=== PATIENT | male | born 1950 | race Caucasian/White ===

== ENCOUNTER → 2018-05-02 17:57 | Outpatient (CLI) | payer BC, SELFPAY ==
[2018-05-02 18:35] LABS: Absolute Lymphocyte Count 1.99 X10^3/ul (0.83-4.51); Absolute Neutrophil Count 4.2 X10^3/uL (2.0-7.7); Basophil# 0.02 X10^3/uL; Basophil% 0.3 % (0-1); Eosinophil# 0.15 X10^3/uL; Eosinophils% 2.1 % (0-5); Hemoglobin 15.5 g/dl (13.0-16.5); Lymphocyte # 1.99 X10^3/ul (4.0); Lymphocyte % 27.3 % (19-41); Mean Corp Hgb Conc 33.7 g/gl (32-36); Mean Corpuscular Hgb 29.3 pg (27.0-32.0); Mean Platelet Vol. 12.2 fl (6.2-12.0); Monocyte% 12.4 % (0-10); Neutrophil % 57.6 % (47-70); Platelet Count 185 K/mm3 (150-450); RBC Distribution Width CV 13.8 % (11.6-14.6); RBC Distribution Width SD 44.3 fl (35.1-43.9); Red Blood Count 5.29 M/mm3 (4.6-6.2); White Blood Count 7.3 K/mm3 (4.4-11.0)
[2018-05-02 18:55] LABS: POSITIVE COUNT NO; POSITIVE DIFFERENTIAL NO; POSITIVE MORPHOLOGY NO
[2018-05-02 19:32] LABS: AST(SGOT) 33 U/L (15-37); Alanine Aminotransfer ALT/SGPT 55 U/L (16-61); Alkaline Phosphatase 59 U/L (45-117); Anion Gap 8 (5-15); BUN 15 mg/dL (7-18); BUN/Creat Ratio 14.2 RATIO (10-20); Calcium,Total 9.8 mg/dL (8.5-10.1); Chloride 105 mmol/L (98-107); Creatinine, Serum 1.06 mg/dL (0.70-1.30); EST Glomerular Filtration Rate 74 mL/min (>60); Est Glom Filt Rate - Afr Amer 90 mL/min (>60); Glucose 86 mg/dL (74-106); PSA,Total - Annual Screen 0.83 ng/mL (0.00-4.00); Potassium 3.9 mmol/L (3.5-5.1); Sodium Level 139 mmol/L (136-145)
[2018-05-02 20:13] LABS: Vitamin D,25 Hydroxy 27.3 ng/mL (29.95-100.01)
[2018-05-04 11:38] LABS: Hep C Antibodies 0.1 s/co ratio (0.0-0.9)
== END ==
PROVIDERS: Family Provider Family Medicine Geriatric Medicine; PCP Family Medicine Geriatric Medicine; Referring Provider Family Medicine Geriatric Medicine; Visit Provider Family Medicine Geriatric Medicine
DX: Z00.00 Encounter for general adult medical examination without abnormal findings (principal); Z13.89 Encounter for screening for other disorder; Z12.5 Encounter for screening for malignant neoplasm of prostate; E55.9 Vitamin D deficiency, unspecified
CPT/HCPCS: 36415; 80053; 82306; 84153; 84443; 85025; 86803; G0103

== ENCOUNTER → 2018-07-26 16:44 | Outpatient (CLI) | payer BC, SELFPAY ==
--- NOTE | 2018-07-26 16:48 | CT_ITS ---
STUDY: CT ABDOMEN WITH CONTRAST REASON FOR EXAM: Male, 68 years old. Unruptured abdominal aortic aneurysm. RADIATION DOSAGE (If Supplied By Facility): CTDIvol = ( 26.34 ) mGy, DLP = ( 1010.91 ) mGycm TECHNIQUE: Transaxial images were obtained post I.V. administration of Isovue 370 100 IV, and without oral contrast. Sagittal and coronal images were reconstructed. Individualized dose optimization techniques were used for this CT. COMPARISON: None. FINDINGS: Well-defined 1.5 cm pneumatocele and a 5.5 mm calcified granuloma are incidentally noted in the posterior basilar right lower lobe. The visualized portions of the heart are within normal limits. There is hepatomegaly with diffuse hepatic enlargement. The right lobe of the liver is approximately 22.5 cm in length. The portal vein diameter is 15 mm. Normal gallbladder and extrahepatic biliary system. There is mild splenomegaly, measuring 12.8 x 5.75 x 14.35 cm. Normal pancreas. Normal bilateral adrenal glands. 5-6 mm subcapsular low density at the lateral lower pole of the right kidney consistent with a cortical cyst. Normal left kidney. No hydronephrosis. Normal visualized stomach. Normal small intestine. There are a few sigmoid colonic diverticula consistent with diverticulosis. The appendix is visualized and appears normal. There is mild atherosclerotic calcification of the abdominal aorta and proximal iliac arteries, without a demonstrated aneurysm. Normal inferior vena cava. Normal retroperitoneum. Normal abdominal wall. There are multilevel degenerative changes of the visualized spine, including posterior L4-5 S1 osteophytes bounding a wide-based posterior disc bulge at that level and multilevel hypertrophic facet arthropathies. CT/Abdomen WITH IV Contrast IMPRESSION: 1. No abdominal aortic aneurysm. 2. Hepatomegaly with steatosis. There is also mild splenomegaly. 3. 5-6 mm cortical cyst at the lower pole of the right kidney. No hydronephrosis. 4. There are a few sigmoid colon diverticula without acute diverticular disease. The bowel is otherwise unremarkable without signs of obstruction. The appendix is normal. 5. Multilevel degenerative changes of the spine. Electronically Signed: Andrews Hall MD at 17:09 EST , Service support ,
[2018-07-26 17:05] LABS: CREATININE FINGERSTICK 1.1 mg/dL (0.70-1.30)
== END ==
PROVIDERS: Family Provider Family Medicine Geriatric Medicine; PCP Family Medicine Geriatric Medicine; Referring Provider Family Medicine Geriatric Medicine; Visit Provider Family Medicine Geriatric Medicine
DX: I71.4 Abdominal aortic aneurysm, without rupture (principal)
CPT/HCPCS: 74160; Q9967

== ENCOUNTER → 2018-08-06 14:55 | Outpatient (CLI) | payer BC, SELFPAY ==
--- NOTE | 2018-08-06 12:00 | COLBX_PTH ---
PATIENT: KOFFI ESQUIVEL Jr. LOC: [facility] U#:[id number] AGE/SX: 75/M ROOM: RE08/06/[address]: Dr. Tenzin Kruger MD : 1950 BED: DIS: SPEC #: [id number] RECD: 08/06/18 14:33 STATUS: SISSY MICA #: [id number] SKY: 08/06/18 12:[address]: Tenzin Kruger DEPT: SURGICAL PATHOLOGY RECD BY: Cassie Villeda ENTERED: 08/06/18 15:48 SP TYPE: COLON BX OTHR DR: Dr. Cali Gonzalez MD [facility] Tissues: A - Cecum, NOS B - Transverse colon Procedures: Surgery Specimen Level IV HEADER OPERATION: Colonoscopy with biopsy and polypectomy PRE-OP DIAGNOSIS: High risk screening / polyp TISSUE SUBMITTED: A - Cecum polyp, rule out adenoma, B - Transverse colon polyp biopsy, rule out adenoma MICROSCOPIC DIAGNOSIS A. Cecal polyp, biopsy: Tubular adenoma. B. Transverse colon polyp, biopsy: Fragments of tubular adenoma. AM:mackenzie 08/07/18 COMMENT Case has been reviewed in consultation with Dr. Howard who concurs with the above diagnosis. IDC:SJ MICROSCOPIC DESCRIPTION Slides are reviewed. GROSS DESCRIPTION A - Received in fixative is one container labeled with the patient's name and designated cecum. The specimen consists of one irregular fragment of light schilling soft tissue that measures 0.6 x 0.3 x 0.2 cm. The specimen is totally submitted in one cassette. B - Received in fixative is one container labeled with the patient's name and designated transverse. The specimen consists of multiple irregular fragments of light schilling soft tissue that in aggregate measure 0.7 x 0.3 x 0.1 cm. The specimen is totally submitted in one cassette. / AM:mackenzie 08/06/18 TC:5 CPT: 07922 x2
== END ==
PROVIDERS: Family Provider Family Medicine Geriatric Medicine; PCP Family Medicine Geriatric Medicine; Referring Provider Internal Medicine Gastroenterology; Visit Provider Internal Medicine Gastroenterology
DX: Z12.11 Encounter for screening for malignant neoplasm of colon (principal); K63.5 Polyp of colon
CPT/HCPCS: 88305

== ENCOUNTER → 2018-10-11 08:56 | Outpatient (CLI) | payer BC, SELFPAY ==
--- NOTE | 2018-10-11 09:00 | ECHOCS_ITS ---
Reason For Study: Hypoxemia, HTN, GLENN Procedure This was a 2D Doppler, Color Flow transthoracic echocardiogram. Contrast injection was performed. Exam performed in department. Left Ventricle Normal size and thickness. Left ventricular systolic function is normal. The estimated ejection fraction is 60 %. Normal diastology for age. No regional wall motion abnormalities noted. Right Ventricle Normal RV size. Normal systolic function. Atria Normal left atrium. Normal right atrium. No doppler evidence for ASD. Mitral Valve There is no mitral valve stenosis. No mitral valve insufficiency. Tricuspid Valve There is no tricuspid stenosis. Unable to estimate RV systolic pressure due to inadequate jet, pulmonary artery pressure probably normal. Aortic Valve Aortic sclerosis, no stenosis. There is no aortic stenosis. No aortic valve insufficiency. Pulmonic Valve There is no pulmonic valvular stenosis. Trivial pulmonic valve insufficiency. Great Vessels Normal aortic root. Pericardium/Pleural No pericardial effusion. Medication 22 gauge I.V. with prn adaptor inserted into right arm. Diluted definity 2ml given slow IV push to enhance endocardial definition. MMode/2D Measurements & Calculations LVIDd: 4.9 cm IVSd: 1.5 cm Ao root diam: 4.0 cm LVIDs: 3.3 cm LVPWd: 1.6 cm FS: 33.9 % LAV(MOD-bp): 60.2 ml LA A4 area: 22.9 cm2 RA A4 area: 17.7 cm2 LAV(MOD-bp) Indexed: 22.4 ml/m2 LAV(MOD-sp2): 50.7 ml LAV(MOD-sp4): 69.0 ml Time Measurements MV dec time: 0.20 sec Doppler Measurements & Calculations MV E max kenny: 76.4 cm/sec Lat Peak E' Kenny: 9.2 cm/sec Med Peak E' Kenny: 9.3 cm/sec MV A max kenny: 89.0 cm/sec E/E' lat: 8.3 E/E' med: 8.2 MV E/A: 0.86 MV V2 max: 96.3 cm/sec MV P1/2t max kenny: 94.4 cm/sec Ao V2 max: 170.8 cm/sec MV max P.7 mmHg MV P1/2t: 76.3 msec Ao max P.7 mmHg MV V2 mean: 61.6 cm/sec MV dec slope: 362.4 cm/sec2 Ao V2 mean: 97.9 cm/sec MV mean P.8 mmHg Ao mean P.6 mmHg MV V2 VTI: 27.0 cm MVA(P1/2t): 2.9 cm2 Ao V2 VTI: 29.6 cm LV V1 max: 112.1 cm/sec PA V2 max: 139.6 cm/sec LV V1 max P.0 mmHg LV V1 mean P.5 mmHg LV V1 mean: 72.1 cm/sec LV V1 VTI: 24.0 cm Interpretation Summary The study was technically difficult. Diluted definity 2ml given slow IV push to enhance endocardial definition. Left ventricular systolic function is normal. The estimated ejection fraction is 60 %. Normal diastology for age. The study was technically difficult. Ordering Physician: Kenny Lund Physician: Kenny Lund Performed By: Dharmesh Bradshaw RCS
== END ==
PROVIDERS: Family Provider Family Medicine Geriatric Medicine; PCP Family Medicine Geriatric Medicine; Referring Provider Internal Medicine Pulmonary Disease; Visit Provider Internal Medicine Pulmonary Disease
DX: R09.02 Hypoxemia (principal); I10 Essential (primary) hypertension; G47.33 Obstructive sleep apnea (adult) (pediatric); G47.31 Primary central sleep apnea
CPT/HCPCS: 93306; Q9957; A4216; C8929

== ENCOUNTER → 2018-11-26 12:15 | Outpatient (CLI) | payer BC, SELFPAY ==
[2018-11-26 17:25] LABS: Absolute Lymphocyte Count 2.04 X10^3/ul (0.83-4.51); Basophil# 0.02 X10^3/uL; Basophil% 0.3 % (0-1); Eosinophil# 0.18 X10^3/uL; Hematocrit 44.4 % (40-54); Lymphocyte # 2.04 X10^3/ul (4.0); Lymphocyte % 33.7 % (19-41); Mean Corp Hgb Conc 33.8 g/gl (32-36); Mean Corpuscular Hgb 28.8 pg (27.0-32.0); Mean Corpuscular Volume 85.4 fL (80-94); Mean Platelet Vol. 12.1 fl (6.2-12.0); Monocyte# 0.84 X10^3/uL; Monocyte% 13.9 % (0-10); Neutrophil # 2.95 X10^3/uL (2.7-7.7); Neutrophil % 48.8 % (47-70); Platelet Count 182 K/mm3 (150-450); RBC Distribution Width CV 14.2 % (11.6-14.6); RBC Distribution Width SD 43.6 fl (35.1-43.9); White Blood Count 6.1 K/mm3 (4.4-11.0)
[2018-11-26 17:32] LABS: POSITIVE COUNT NO; POSITIVE DIFFERENTIAL NO; POSITIVE MORPHOLOGY NO
[2018-11-26 17:39] LABS: AST(SGOT) 23 U/L (15-37); Alanine Aminotransfer ALT/SGPT 39 U/L (16-61); Albumin, Serum 3.7 g/dL (3.2-5.0); Alkaline Phosphatase 50 U/L (45-117); Anion Gap 2 (5-15); BUN 14 mg/dL (7-18); BUN/Creat Ratio 13.5 RATIO (10-20); Calcium,Total 9.7 mg/dL (8.5-10.1); Chloride 107 mmol/L (98-107); Creatinine, Serum 1.04 mg/dL (0.70-1.30); EST Glomerular Filtration Rate 76 mL/min (>60); Est Glom Filt Rate - Afr Amer 92 mL/min (>60); Globulin 3.7 g/dL (2.2-4.2); Glucose 103 mg/dL (74-106); Potassium 4.1 mmol/L (3.5-5.1); Protein, Total 7.4 g/dL (6.4-8.2); Sodium Level 138 mmol/L (136-145); Thyroid Stim Hormone (TSH) 1.36 uIU/mL (0.358-3.74)
[2018-11-26 17:40] LABS: Vitamin D,25 Hydroxy 22.8 ng/mL (29.95-100.01)
== END ==
PROVIDERS: Family Provider Family Medicine Geriatric Medicine; PCP Family Medicine Geriatric Medicine; Visit Provider Family Medicine Geriatric Medicine
DX: E55.9 Vitamin D deficiency, unspecified (principal); I10 Essential (primary) hypertension
CPT/HCPCS: 36415; 80053; 82306; 84443; 85025

== ENCOUNTER → 2019-05-03 08:47 | Outpatient (CLI) | payer BC, SELFPAY ==
[2019-05-03 12:18] LABS: Absolute Lymphocyte Count 2.01 X10^3/uL (0.83-4.51); Absolute Neutrophil Count 4.4 X10^3/uL (2.0-7.7); Basophil# 0.05 X10^3/uL; Basophil% 0.7 % (0-1); Eosinophil# 0.13 X10^3/uL; Eosinophils% 1.7 % (0-5); Hematocrit 45.9 % (40-54); Lymphocyte # 2.01 X10^3/ul (4.0); Lymphocyte % 26.9 % (19-41); Mean Corp Hgb Conc 32.7 g/dL (32-36); Mean Corpuscular Hgb 29.1 pg (27.0-32.0); Mean Platelet Vol. 11.7 fl (6.2-12.0); Monocyte# 0.85 X10^3/uL; Monocyte% 11.4 % (0-10); NRBC Flagged by Analyzer 0 % (0-5); Neutrophil # 4.37 X10^3/uL (2.7-7.7); Neutrophil % 58.6 % (47-70); Platelet Count 195 K/mm3 (150-450); RBC Distribution Width CV 13.7 % (11.6-14.6); RBC Distribution Width SD 44.4 fl (35.1-43.9); Red Blood Count 5.16 M/mm3 (4.6-6.2); White Blood Count 7.5 K/mm3 (4.4-11.0)
[2019-05-03 12:55] LABS: ALB/GLOB Ratio 1.1 RATIO (0.9-2.4); AST(SGOT) 24 U/L (15-37); Alanine Aminotransfer ALT/SGPT 44 U/L (16-61); Albumin, Serum 4.1 g/dL (3.2-5.0); Alkaline Phosphatase 50 U/L (45-117); Anion Gap 5 (5-15); BUN 19 mg/dL (7-18); BUN/Creat Ratio 17.4 RATIO (10-20); Calcium,Total 10.1 mg/dL (8.5-10.1); Chloride 105 mmol/L (98-107); Creatinine, Serum 1.09 mg/dL (0.70-1.30); EST Glomerular Filtration Rate 72 mL/min (>60); Est Glom Filt Rate - Afr Amer 87 mL/min (>60); Globulin 3.6 g/dL (2.2-4.2); Glucose 106 mg/dL (74-106); Protein, Total 7.7 g/dL (6.4-8.2); Sodium Level 140 mmol/L (136-145); Thyroid Stim Hormone (TSH) 2.73 uIU/mL (0.358-3.74)
== END ==
PROVIDERS: Family Provider Family Medicine Geriatric Medicine; PCP Family Medicine Geriatric Medicine; Visit Provider Family Medicine Geriatric Medicine
DX: E55.9 Vitamin D deficiency, unspecified (principal); I10 Essential (primary) hypertension
CPT/HCPCS: 36415; 80053; 82306; 84443; 85025

== ENCOUNTER 2019-08-20 15:32 | Outpatient (RCR) | payer BC, SELFPAY | END 2019-08-27 23:59 | LOC: NS 15:32 | PROVIDERS: PCP Family Medicine Geriatric Medicine; Visit Provider Family Medicine Geriatric Medicine | DX: Z71.3 Dietary counseling and surveillance (principal); Z68.41 Body mass index [BMI] 40.0-44.9, adult; E66.01 Morbid (severe) obesity due to excess calories; E88.81 Metabolic syndrome and other insulin resistance | CPT/HCPCS: 97802 ==

== ENCOUNTER 2019-09-16 15:00 | Outpatient (RCR) | payer BC, SELFPAY | END 2019-09-26 23:59 | LOC: NS 15:00 | PROVIDERS: PCP Family Medicine Geriatric Medicine; Visit Provider Family Medicine Geriatric Medicine | DX: Z71.3 Dietary counseling and surveillance (principal); Z68.41 Body mass index [BMI] 40.0-44.9, adult; E66.01 Morbid (severe) obesity due to excess calories; E88.81 Metabolic syndrome and other insulin resistance | CPT/HCPCS: 97803 ==

== ENCOUNTER 2019-10-15 16:30 | Outpatient (RCR) | payer BC, SELFPAY | END 2019-10-27 23:59 | LOC: NS 16:30 | PROVIDERS: PCP Family Medicine Geriatric Medicine; Visit Provider Family Medicine Geriatric Medicine | DX: Z71.3 Dietary counseling and surveillance (principal); Z68.41 Body mass index [BMI] 40.0-44.9, adult; E66.01 Morbid (severe) obesity due to excess calories | CPT/HCPCS: 97803 ==

== ENCOUNTER → 2019-11-01 11:53 | Outpatient (CLI) | payer BC, SELFPAY ==
[2019-11-01 12:35] LABS: Absolute Lymphocyte Count 1.57 X10^3/uL (0.83-4.51); Absolute Neutrophil Count 3.7 X10^3/uL (2.0-7.7); Basophil# 0.04 X10^3/uL; Basophil% 0.7 % (0-1); Eosinophil# 0.09 X10^3/uL; Eosinophils% 1.5 % (0-5); Hematocrit 47.4 % (40-54); Hemoglobin 15.6 g/dL (13.0-16.5); Lymphocyte # 1.57 X10^3/ul (4.0); Lymphocyte % 26.2 % (19-41); Mean Corp Hgb Conc 32.9 g/dL (32-36); Mean Corpuscular Hgb 29.3 pg (27.0-32.0); Mean Corpuscular Volume 89.1 fL (80-94); Mean Platelet Vol. 12.8 fl (6.2-12.0); Monocyte# 0.55 X10^3/uL; Monocyte% 9.2 % (0-10); NRBC Flagged by Analyzer 0 % (0-5); Neutrophil # 3.73 X10^3/uL (2.7-7.7); Neutrophil % 62.1 % (47-70); Platelet Count 180 K/mm3 (150-450); RBC Distribution Width CV 13.7 % (11.6-14.6); RBC Distribution Width SD 44.3 fl (35.1-43.9); Red Blood Count 5.32 M/mm3 (4.6-6.2)
[2019-11-01 13:15] LABS: Vitamin D,25 Hydroxy 39.6 ng/mL
[2019-11-01 13:36] LABS: AST(SGOT) 23 U/L (15-37); Alanine Aminotransfer ALT/SGPT 36 U/L (16-61); Albumin, Serum 3.9 g/dL (3.2-5.0); Alkaline Phosphatase 60 U/L (45-117); Anion Gap 7 (5-15); BUN 11 mg/dL (7-18); BUN/Creat Ratio 10.5 RATIO (10-20); Calcium,Total 9.9 mg/dL (8.5-10.1); Chloride 106 mmol/L (98-107); Creatinine, Serum 1.05 mg/dL (0.70-1.30); EST Glomerular Filtration Rate 75 mL/min (>60); Est Glom Filt Rate - Afr Amer 90 mL/min (>60); Glucose 106 mg/dL (74-106); Potassium 3.9 mmol/L (3.5-5.1); Protein, Total 7.9 g/dL (6.4-8.2); Sodium Level 139 mmol/L (136-145); Thyroid Stim Hormone (TSH) 1.83 uIU/mL (0.358-3.74)
== END ==
PROVIDERS: PCP Family Medicine Geriatric Medicine; Visit Provider Family Medicine Geriatric Medicine
DX: E55.9 Vitamin D deficiency, unspecified (principal); I10 Essential (primary) hypertension
CPT/HCPCS: 36415; 80053; 82306; 84443; 85025

== ENCOUNTER 2019-11-12 15:00 | Outpatient (RCR) | payer BC, SELFPAY | END 2019-11-26 23:59 | LOC: NS 15:00 | PROVIDERS: PCP Family Medicine Geriatric Medicine; Visit Provider Family Medicine Geriatric Medicine | DX: Z71.3 Dietary counseling and surveillance (principal); Z68.41 Body mass index [BMI] 40.0-44.9, adult; E66.01 Morbid (severe) obesity due to excess calories | CPT/HCPCS: 97803 ==

== ENCOUNTER 2019-12-13 08:14 | Day surgery (SDC) | payer BC, SELFPAY ==
[2019-12-04 11:28] VITALS: BMI 39.0
--- NOTE | 2019-12-13 07:47 | HP.PCM_ITS ---
History and Physical Date of Admission: 12/13/19 HISTORY OF PRESENT ILLNESS 69 year old man presents with painful soft tissue masses left postauricular area and left upper back by the shoulder that have increased in size over the last several months. He denies any fever. He denies any trauma. He denies any recent infection. He wears glasses and the left postauricular mass will be irritated from the glasses. He also wears a CPAP at night which can be irritated from the mass as well. He presents at this time for further evaluation and treatment. PAST MEDICAL HISTORY Carpal tunnel syndrome High blood pressure PAST SURGICAL HISTORY bilateral knee replacement ALLERGIES No Known Allergies MEDICATIONS aspirin cholecalciferol (vitamin D3) losartan FAMILY HISTORY Father - Heart disease, CVA (cerebral vascular accident), History of blood clots SOCIAL HISTORY Smoking Status: Former smoker how long ago did patient quit smokin alcohol intake: current substance use type: does not use REVIEW OF SYSTEMS General - Denies fever, fatigue, and weight loss. Eyes - Denies cataracts and glaucoma. ENT - Denies nasal congestion and sore throat. Endocrine - Denies excessive thirst and urination. Skin - Denies skin cancer. Has enlarging painful soft tissue masses left postauricular area and left upper back by the shoulder. Musculoskeletal - Has joint pain and joint stiffness. Denies weakness of muscles and joints, back pain, and arthritis. Neuro - Denies headaches. Cardiovascular - Denies chest pain, fatigue, and shortness of breath with exertion. Psych - Denies anxiety and depression. Respiratory - Denies chronic cough and shortness of breath. Has GLENN. Patient is a former smoker. Gastrointestinal - Denies nausea, vomiting, diarrhea, and constipation. Hematologic - Denies abnormal bruising and bleeding. Genitourinary - Denies hematuria and urinary frequency. PHYSICAL EXAMINATION General - Alert and Oriented. HEENT - PERRL. EOMI. Throat is clear. On the left postauricular area is a soft tissue mass that measures 3.5 cm. It is mobile. Mild discomfort when palpated. It is raised in configuration. No other suspicious lesions noted. Neck - Supple and nontender. No cervical adenopathy. No suspicious lesions noted. Lungs - Clear to auscultation. Heart - Regular rate and rhythm. Abdomen - Soft and nondistended. No suspicious lesions noted. Extremities - FROM. No axillary adenopathy. Radial pulses are palpable. No suspicious lesions noted. Back - On the left upper back by the shoulder is a soft tissue mass that measures 5 cm. It is mobile. Mild discomfort when palpated. It is raised in configuration. No other suspicious lesions noted. Neuro - CN II-XII grossly intact. Psych - Normal mood and affect. ASSESSMENT 1. 3.5 cm painful soft tissue mass left postauricular area. 2. 5 cm painful soft tissue mass left upper back by the shoulder. 3. Former smoker. PLAN Recommend excision of these soft tissue masses left postauricular area and left upper back by the shoulder. Will send them to Pathology for analysis to rule out carcinoma. The masses are mobile. I don't anticipate having to remove excess skin that would then necessitate a skin flap or skin graft reconstruction. However if carcinoma is present, then further excision will be done including the overlying skin which would then necessitate a skin flap or skin graft reconstruction. Depending on the size of the cavity present after excision, a small drain may be necessary. It would be removed in 7-10 days. Surgery would be done under local anesthesia and IV sedation on an outpatient basis. Patient was informed of the risks and complications of the procedure including alternatives to surgery. These were discussed with the patient personally. Patient voices understanding and wishes to proceed. Some of the risks and complications were included in a form from the [employer]. We discussed the current risks associated with COVID-19. While it is understood that there is a community spread of COVID-19, the risk of shayy COVID-19 while at [facility] ([facility]) is very low; however, the risk cannot be completely mitigated because of the community spread of the disease. We discussed in detail the risk of exposure to and/or potential harm posed by the COVID-19 virus with having a surgery/procedure at this time versus the risk of delaying the surgery/procedure. It is not possible to know either the risk of delaying the surgery or procedure or chance of getting an infection with perfect accuracy, but a joint decision was made to proceed at this time with the scheduled surgery/procedure as indicated on the consent form. Patient was notified that we will need to comply with any screening or testing [facility] wishes to perform or that surgery may be delayed for any positive results. Discussed with the patient that I was tested for COVID-19 on 11/28/19. My test was negative. My testing regimen at this time is to be COVID-19 tested every 2 weeks or so. I was recently tested on 12/12/19, and that result is pending. Procedure Criteria Procedure Type: Elective COVID Risk Discussion: The surgeon/proceduralist and patient have discussed in detail the risk of exposure to and/or potential harm posed by the COVID-19 virus with having a surgery/procedure at this time versus the risk of delaying the surgery/procedure. It is not possible to know either the risk of delaying the surgery or procedure or chance of getting an infection with perfect accuracy, but a joint decision was made between the patient and the surgeon/proceduralist to proceed at this time with the scheduled surgery/procedure as indicated on the consent form.
[2019-12-13 08:36] VITALS: BP 149/78; PULSE 72; RESP 17; TEMP 37.2; O2SAT 100; BMI 37.8
[2019-12-13] MEDS: Lactated Ringers 1,000 ML 100 ML IV (08:45)
--- NOTE | 2019-12-13 10:00 | MASS_PTH ---
PATIENT: KOFFI ESQUIVEL Jr. LOC: [facility] [place] U#:[id number] AGE/SX: 69/M ROOM: RE12/13/[address]: Dr. London Benites MD : 1950 BED: DIS: 12/13/2019 SPEC #: [id number] RECD: 12/13/19 13:37 STATUS: SISSY REQ #: [id number] SKY: 12/13/19 10:[address]: London Benites DEPT: SURGICAL PATHOLOGY RECD BY: Daron Brody ENTERED: 12/16/19 11:25 SP TYPE: Mass OTHR DR: Dr. Cali Gonzalez MD Tissues: A - Skin of back, NOS B - Skin of back, NOS Procedures: Surgery Specimen Level III HEADER OPERATION: Excision soft tissue mass, postauricular area, upper back PRE-OP DIAGNOSIS: 3.5 cm painful soft tissue mass left postauricular area; 5 cm painful soft tissue mass left upper back by shoulder TISSUE SUBMITTED: A - Soft tissue mass left postauricular area, B - Soft tissue mass left upper back by shoulder MICROSCOPIC DIAGNOSIS A. Soft tissue mass left postauricular area, excision: Consistent with fibrolipoma. A benign lymph node with reactive changes. Skin, no pathologic diagnosis. B. Soft tissue mass left upper back by shoulder, excision: Mature adipose tissue, consistent with lipoma. Skin, no pathologic diagnosis. RUBY:mackenzie 12/17/19 MICROSCOPIC DESCRIPTION Slides are reviewed. GROSS DESCRIPTION A - Received in fixative is one container labeled with the patient's name and designated soft tissue mass left postauricular area. The specimen consists of a piece of skin with underlying tissue. The skin piece measures 3.6 x 0.7 cm. The underlying tissue measures 3.5 x 3 x 1.5 cm. No skin lesion is identified. Section of underlying tissue reveals adipose cut surfaces without area of hemorrhage, necrosis or cystic degeneration. Cardiac Care Unit Nurse sections are submitted in three cassettes. B - Received in fixative is one container labeled with the patient's name and designated soft tissue mass left upper back by shoulder. The specimen consists of a piece of skin with underlying tissue. The skin piece measures 4.2 x 0.6 cm. The underlying tissue measures 4.5 x 3 x 2 cm. No skin lesion is identified. Focal area also shows a well-defined nodule consisting of adipose tissue which measures 3 x 2 x 1.5 cm. Section of underlying tissue reveals adipose cut surfaces without area of hemorrhage, necrosis or cystic degeneration. Cardiac Care Unit Nurse sections are submitted in three cassettes. / RUBY:mackenzie 12/16/19 TC:1 CPT: 01698 x2
[2019-12-13] MEDS: Mupirocin Ointment 22gm Tube 1 APPLIC (11:47)
--- NOTE | 2019-12-13 11:57 | PCM.OPRPT ---
Report of Operation Date of Procedure: 12/13/19 Pre-Operative Diagnosis: 1. 3.5 cm painful soft tissue mass left postauricular area. 2. 5 cm painful soft tissue mass left upper back by the shoulder. 3. Former smoker. Post-Operative Diagnosis: Same. Surgery/Procedure Performed:: 1. Excision 3.5 cm painful soft tissue mass left postauricular area with 3.5 cm layered closure. 2. Excision 5 cm painful soft tissue mass left upper back by the shoulder with 5 cm layered closure. Description of Surgical Findings:: 69 year old man presents with painful soft tissue masses left postauricular area and left upper back by the shoulder that have increased in size over the last several months. He denies any fever. He denies any trauma. He denies any recent infection. He wears glasses and the left postauricular mass will be irritated from the glasses. He also wears a CPAP at night which can be irritated from the mass as well. Patient was informed of the risks and complications of the procedure including alternatives to surgery. These were discussed with the patient personally. Patient voices understanding and wishes to proceed. Some of the risks and complications were included in a form from the [employer]. I used Christiana absorbable hemostat, (I used 2 vials, one in the left postauricular wound and one in the left upper back by the shoulder wound). Reference Number - [id number]. Lot Number - [id number]. Expiration - June 25, 2024, (left postauricular wound). Reference Number - [id number]. Lot Number - [id number]. Expiration - May 25, 2024, (left upper back by the shoulder wound). asset specialist: None Type of Anesthesia:: Local MAC - xylocaine with epinephrine and IV sedation. Specimen's removed: 1. Painful soft tissue mass left postauricular area to Pathology. 2. Painful soft tissue mass left upper back by the shoulder to Pathology. Drains: None. Estimated Blood Loss (mL): 20 ml. Description of Procedure: Patient was taken to OR in supine position and was given IV sedation. He was placed in the lateral position. The soft tissue masses left postauricular area and left upper back by the shoulder were prepped and draped in the usual fashion. SCD's were placed for DVT prophylaxis. Perioperative antibiotics were given intravenously. For the procedure, I wore an N95 mask and wore proper eye protection. The soft tissue masses were infiltrated with xylocaine and epinephrine. After waiting 5 minutes for the anesthetic to take effect, I made an oblique elliptical incision over the soft tissue mass left upper back by the shoulder. Dissection was carried down into the subcutaneous tissue. The soft tissue mass was sharply dissected free and it was adherent to the underlying muscle. The soft tissue mass was then sent to Pathology for analysis to rule out carcinoma. The soft tissue mass was clinically consistent with a lipoma. The wound was irrigated with saline. Hemostasis was obtained with electrocautery. I sprayed Christiana absorbable hemostat into the wound to minimize seroma formation. The resultant wound was not large enough to necessitate a drain. The wound was then closed in a layered fashion measuring 5 cm. The deep dermis and subcutaneous tissue was approximated with 3-0 Monocryl interrupted sutures. The skin was approximated with 4-0 Prolene simple interrupted and vertical mattress interrupted sutures. I next made an oblique elliptical incision over the soft tissue mass left postauricular area. Dissection was carried down into the subcutaneous tissue. The soft tissue mass was sharply dissected free and it was adherent to the underlying muscle. The soft tissue mass was then sent to Pathology for analysis to rule out carcinoma. The soft tissue mass was clinically consistent with a lipoma. The wound was irrigated with saline. Hemostasis was obtained with electrocautery. I sprayed Christiana absorbable hemostat into the wound to minimize seroma formation. The wound was then closed in a layered fashion measuring 3.5 cm. The deep dermis and subcutaneous tissue was approximated with 4-0 Monocryl interrupted sutures. The skin was approximated with 5-0 Prolene simple interrupted and vertical mattress interrupted sutures. Antibiotic ointment was applied to both suture lines. A compression gauze dressing was applied to the left upper back by the shoulder incision. No dressing was applied to the left postauricular incision as it would be difficult to maintain a dressing with tape because of her underlying hair. Patient tolerated the procedure well and was sent to PACU in satisfactory condition. Patient will be sent home on antibiotics and pain medication. He will keep his head elevated during the initial postoperative period. He will be on a lifting restriction. Patient will followup in a week for a wound check and for discussion of the pathology report. The suture will be removed in two weeks. Grafts/Implants Used: None. - Complications None. - Admit VTE Documentation VTE Present on Admission: No VTE Mechan Device Prophylaxis: SCD's VTE Pharm Prophylaxis ordered?: No Surgery Charges CPT - 36748 ICD-10 - R22.0, R20.8, Z87.891 07751 R22.2, R20.8, Z87.891
[2019-12-13 12:05] VITALS: BP 129/73; BP 149/78; PULSE 64; RESP 16; TEMP 36.3; O2SAT 94
--- NOTE | 2019-12-13 12:07 | PCM.DC ---
You will use the following diet at home:: No restrictions Discharge Activity: May not drive while taking narcotic pain medications., May Shower - in two days., - - keep head elevated. no heavy lifting. May shower in (days): 2 May resume sexual activity in: No Restrictions Weight Bearing Status: Weight bearing as tolerated Lifting Restrictions: 20 lbs. Keep extremity elevated above heart level: - - elevate head. Call your doctor if your incision/area has: Continuous Slow Oozing, Sudden Increased Bleeding, Increased Pain/ Swelling, Increased Redness, Foul Smelling Discharge, Swelling at the incision site Call your doctor if you observe: Fever of 101 or Higher, Coldness, Increased Pain, Shortness of breath, Chest pain, Calf discomfort, Uncontrolled pain Suture Line Care: - - after operative dressing removed in two days, apply antibiotic ointment to suture line daily. Change Dressing in (Days):: 2 Cleanse incision/area with: - - may get incision wet in the shower in two days. Allergies/Adverse Reactions: Allergies No Known Allergies Allergy (Unverified 12/13/19 08:27) Medications to take at Discharge cholecalciferol (vitamin D3) 50 mcg (2,000 unit) tablet 50 mcg PO DAILY 12/04/19 losartan 50 mg tablet 50 mg PO DAILY 12/04/19 Cefadroxil [Duricef] 500 mg PO BID #10 cap 12/13/19 Lactobacillus Acidophilus/Fos [Acidophilus Probiotic Tablet] 1 ea PO BID #10 tab 12/13/19 Oxycodone HCl/Acetaminophen [Percocet 5/325] 1 tablet PO Q6H PRN PRN 7 Days #28 tablet 12/13/19 The following prescriptions were given: Lactobacillus Acidophilus/Fos [Acidophilus Probiotic Tablet] 1 ea PO BID #10 tab Transmission Status: Pending to [facility] Cefadroxil [Duricef] 500 mg PO BID #10 cap Transmission Status: Pending to [facility] Oxycodone HCl/Acetaminophen [Percocet 5/325] 1 tablet PO Q6H PRN PRN 7 Days #28 tablet PRN Reason: Pain Score 4-5/10 Transmission Status: Sent to [facility] Primary Care Physician: Cali Gonzalez Chi, MD [Primary Care Provider] - Test Results: Test results from this visit will be discussed in further detail at your follow-up appointment, if applicable. Please Follow Up With: London Benites MD When: one week. call [phone] for appt. Proposed Discharge Date: 12/13/19
[2019-12-13 12:10] VITALS: BP 141/65; BP 149/78; PULSE 59; RESP 16; O2SAT 95
[2019-12-13 12:15] VITALS: BP 144/70; BP 149/78; PULSE 58; RESP 16; O2SAT 99
[2019-12-13 12:20] VITALS: BP 140/83; BP 149/78; PULSE 62; RESP 16; TEMP 36.7; O2SAT 98
[2019-12-13 12:46] VITALS: BP 149/78
== END 2019-12-13 12:54 | disposition home or self-care (01) ==
LOC: SDC 08:18 → AC 08:19
PROVIDERS: Anesthesiology; PCP Family Medicine Geriatric Medicine; Referring Provider Surgery; Visit Provider Surgery
PROC: (CPT 21012; principal; 2019-12-13 09:45)
DX: R22.0 Localized swelling, mass and lump, head (principal); R22.2 Localized swelling, mass and lump, trunk; R20.8 Other disturbances of skin sensation; I10 Essential (primary) hypertension; Z79.82 Long term (current) use of aspirin; Z87.891 Personal history of nicotine dependence; Z11.59 Encounter for screening for other viral diseases
CPT/HCPCS: 00300; 21012; 21931; 87635; 88304; 88305; G2023; J7120; U0003

== ENCOUNTER 2020-01-27 14:45 | Outpatient (RCR) | payer BC, SELFPAY ==
[2019-12-26 10:45] VITALS: BMI 37.8
== END 2020-01-27 23:59 | disposition home or self-care (01) ==
LOC: NS 14:45
PROVIDERS: PCP Family Medicine Geriatric Medicine; Visit Provider Family Medicine Geriatric Medicine
DX: Z71.3 Dietary counseling and surveillance (principal); E66.01 Morbid (severe) obesity due to excess calories; Z68.41 Body mass index [BMI] 40.0-44.9, adult; E88.81 Metabolic syndrome and other insulin resistance
CPT/HCPCS: 97803

== ENCOUNTER → 2020-10-28 13:58 | Outpatient (CLI) | payer MEDICARE, SELFPAY ==
[2020-01-08 15:45] VITALS: BMI 37.8
[2020-10-28 16:03] LABS: Absolute Lymphocyte Count 1.88 X10^3/uL (0.83-4.51); Absolute Neutrophil Count 3.5 X10^3/uL (2.0-7.7); Basophil# 0.03 X10^3/uL; Basophil% 0.5 % (0-1); Eosinophil# 0.14 X10^3/uL; Eosinophils% 2.2 % (0-5); Hematocrit 45.6 % (40-54); Hemoglobin 14.6 g/dL (13.0-16.5); Lymphocyte # 1.88 X10^3/ul (0.83-4.51); Lymphocyte % 29.4 % (19-41); Mean Corpuscular Hgb 28.6 pg (27.0-32.0); Mean Corpuscular Volume 89.4 fL (80-94); Mean Platelet Vol. 12.6 fl (6.2-12.0); Monocyte# 0.82 X10^3/uL; Monocyte% 12.8 % (0-10); NRBC Flagged by Analyzer 0 % (0-5); Neutrophil % 54.6 % (47-70); Platelet Count 196 K/mm3 (150-450); RBC Distribution Width CV 13.9 % (11.6-14.6); RBC Distribution Width SD 45.7 fl (35.1-43.9); White Blood Count 6.4 K/mm3 (4.4-11.0)
[2020-10-28 16:35] LABS: AST(SGOT) 16 U/L (15-37); Alanine Aminotransfer ALT/SGPT 30 U/L (16-61); Albumin, Serum 3.7 g/dL (3.2-5.0); Alkaline Phosphatase 57 U/L (45-117); Anion Gap 7 (5-15); BUN 14 mg/dL (7-18); BUN/Creat Ratio 12.8 RATIO (10-20); Calcium,Total 9.7 mg/dL (8.5-10.1); Chloride 106 mmol/L (98-107); Creatinine, Serum 1.09 mg/dL (0.70-1.30); EST Glomerular Filtration Rate 71 mL/min (>60); Est Glom Filt Rate - Afr Amer 86 mL/min (>60); Globulin 3.8 g/dL (2.2-4.2); Glucose 97 mg/dL (74-106); PSA,Total - Annual Screen 1.36 ng/mL (0.00-4.00); Potassium 4.3 mmol/L (3.5-5.1); Protein, Total 7.5 g/dL (6.4-8.2); Sodium Level 140 mmol/L (136-145); Thyroid Stim Hormone (TSH) 2.02 uIU/mL (0.358-3.74)
== END ==
PROVIDERS: PCP Family Medicine Geriatric Medicine; Visit Provider Family Medicine Geriatric Medicine
DX: I10 Essential (primary) hypertension (principal); E55.9 Vitamin D deficiency, unspecified; Z12.5 Encounter for screening for malignant neoplasm of prostate
CPT/HCPCS: 36415; 80053; 82306; 84153; 84443; 85025; G0103

== ENCOUNTER → 2021-11-01 | Outpatient (CLI) | payer MEDICARE, OTHER, SELFPAY ==
[2021-11-01 10:28] LABS: Absolute Lymphocyte Count 1.58 X10^3/uL (0.83-4.51); Absolute Neutrophil Count 3.5 X10^3/uL (2.0-7.7); Basophil# 0.05 X10^3/uL; Basophil% 0.8 % (0-1); Eosinophil# 0.15 X10^3/uL; Eosinophils% 2.5 % (0-5); Hematocrit 45.5 % (40-54); Hemoglobin 14.8 g/dL (13.0-16.5); Lymphocyte # 1.58 X10^3/ul (0.83-4.51); Lymphocyte % 26.6 % (19-41); Mean Corp Hgb Conc 32.5 g/dL (32-36); Mean Corpuscular Volume 89.2 fL (80-94); Monocyte# 0.65 X10^3/uL; NRBC Flagged by Analyzer 0 % (0-5); Neutrophil # 3.47 X10^3/uL (2.7-7.7); Neutrophil % 58.6 % (47-70); Platelet Count 185 K/mm3 (150-450); RBC Distribution Width CV 13.8 % (11.6-14.6); RBC Distribution Width SD 45.3 fl (35.1-43.9); White Blood Count 5.9 K/mm3 (4.4-11.0)
[2021-11-01 11:02] LABS: AST(SGOT) 16 U/L (15-37); Alanine Aminotransfer ALT/SGPT 30 U/L (16-61); Albumin, Serum 3.8 g/dL (3.2-5.0); Alkaline Phosphatase 44 U/L (45-117); Anion Gap 6 (5-15); BUN 15 mg/dL (7-18); BUN/Creat Ratio 13.4 RATIO (10-20); Calcium,Total 9.9 mg/dL (8.5-10.1); Chloride 105 mmol/L (98-107); Creatinine, Serum 1.12 mg/dL (0.70-1.30); EST Glomerular Filtration Rate 69 mL/min (>60); Est Glom Filt Rate - Afr Amer 83 mL/min (>60); Globulin 3.8 g/dL (2.2-4.2); Glucose 120 mg/dL (74-106); PSA,Total - Annual Screen 1.17 ng/mL (0.00-4.00); Potassium 4.3 mmol/L (3.5-5.1); Protein, Total 7.6 g/dL (6.4-8.2); Sodium Level 139 mmol/L (136-145); Vitamin D,25 Hydroxy 36.8 ng/mL
== END | disposition home or self-care (01) ==
LOC: LAB 09:59
PROVIDERS: PCP Family Medicine Geriatric Medicine; Visit Provider Family Medicine Geriatric Medicine
DX: E55.9 Vitamin D deficiency, unspecified (principal); I10 Essential (primary) hypertension; Z12.5 Encounter for screening for malignant neoplasm of prostate
CPT/HCPCS: 36415; 80053; 82306; 84153; 84443; 85025; G0103

== ENCOUNTER → 2023-01-27 | Outpatient (CLI) | payer MEDICARE, OTHER, SELFPAY ==
[2023-01-27 12:47] LABS: Absolute Lymphocyte Count 1.88 X10^3/uL (0.83-4.51); Absolute Neutrophil Count 3.9 X10^3/uL (2.0-7.7); Basophil# 0.05 X10^3/uL; Basophil% 0.7 % (0-1); Eosinophil# 0.12 X10^3/uL; Eosinophils% 1.7 % (0-5); Hematocrit 44.8 % (40-54); Hemoglobin 14.6 g/dL (13.0-16.5); Lymphocyte # 1.88 X10^3/ul (0.83-4.51); Lymphocyte % 27.4 % (19-41); Mean Corp Hgb Conc 32.6 g/dL (32-36); Mean Corpuscular Hgb 29.4 pg (27.0-32.0); Mean Corpuscular Volume 90.1 fL (80-94); Mean Platelet Vol. 12.5 fl (6.2-12.0); Monocyte# 0.87 X10^3/uL; Monocyte% 12.7 % (0-10); NRBC Flagged by Analyzer 0 % (0-5); Neutrophil # 3.91 X10^3/uL (2.7-7.7); Neutrophil % 57.1 % (47-70); Platelet Count 187 K/mm3 (150-450); RBC Distribution Width CV 13.8 % (11.6-14.6); RBC Distribution Width SD 45.4 fl (35.1-43.9); Red Blood Count 4.97 M/mm3 (4.6-6.2); White Blood Count 6.9 K/mm3 (4.4-11.0)
[2023-01-27 13:25] LABS: AST(SGOT) 23 U/L (15-37); Alanine Aminotransfer ALT/SGPT 42 U/L (16-61); Albumin, Serum 3.8 g/dL (3.2-5.0); Alkaline Phosphatase 62 U/L (45-117); Anion Gap 7 (5-15); BUN 14 mg/dL (7-18); BUN/Creat Ratio 11.2 RATIO (10-20); Calcium,Total 10.2 mg/dL (8.5-10.1); Chloride 108 mmol/L (98-107); Creatinine, Serum 1.25 mg/dL (0.70-1.30); EST Glomerular Filtration Rate 61 mL/min (>60); Est Glom Filt Rate - Afr Amer 73 mL/min (>60); Globulin 3.9 g/dL (2.2-4.2); Glucose 118 mg/dL (74-106); PSA,Total - Annual Screen 0.83 ng/mL (0.00-4.00); Potassium 4.3 mmol/L (3.5-5.1); Protein, Total 7.7 g/dL (6.4-8.2); Sodium Level 141 mmol/L (136-145); Thyroid Stim Hormone (TSH) 1.71 uIU/mL (0.358-3.74)
[2023-01-31 14:45] LABS: Vitamin D,25 Hydroxy 47.3 ng/mL
== END | disposition home or self-care (01) ==
LOC: POLAB3 09:04
PROVIDERS: PCP Family Medicine Geriatric Medicine; Visit Provider Family Medicine Geriatric Medicine
DX: I10 Essential (primary) hypertension (principal); E55.9 Vitamin D deficiency, unspecified; Z12.5 Encounter for screening for malignant neoplasm of prostate
CPT/HCPCS: 36415; 80053; 82306; 84153; 84443; 85025; G0103

== ENCOUNTER → 2024-02-22 | Outpatient (CLI) | payer MEDICARE, OTHER, SELFPAY ==
[2024-02-22 12:01] LABS: Absolute Neutrophil Count 4.4 X10^3/uL (2.0-7.7); Basophil# 0.06 X10^3/uL; Basophil% 0.8 % (0-1); Eosinophil# 0.13 X10^3/uL; Eosinophils% 1.8 % (0-5); Hematocrit 45.2 % (40-54); Hemoglobin 14.9 g/dL (13.0-16.5); Lymphocyte % 27.2 % (19-41); Mean Corpuscular Hgb 28.8 pg (27.0-32.0); Mean Corpuscular Volume 87.4 fL (80-94); Mean Platelet Vol. 11.9 fl (6.2-12.0); Monocyte# 0.76 X10^3/uL; Monocyte% 10.4 % (0-10); NRBC Flagged by Analyzer 0 % (0-5); Neutrophil # 4.35 X10^3/uL (2.7-7.7); Neutrophil % 59.3 % (47-70); Platelet Count 192 K/mm3 (150-450); RBC Distribution Width SD 45.1 fl (35.1-43.9); Red Blood Count 5.17 M/mm3 (4.6-6.2); White Blood Count 7.3 K/mm3 (4.4-11.0)
[2024-02-22 13:00] LABS: Vitamin D,25 Hydroxy 41.6 ng/mL
[2024-02-22 13:01] LABS: AST(SGOT) 24 U/L (15-37); Alanine Aminotransfer ALT/SGPT 37 U/L (16-61); Albumin, Serum 3.7 g/dL (3.2-5.0); Alkaline Phosphatase 57 U/L (45-117); Anion Gap 5 (5-15); BUN 14 mg/dL (7-18); BUN/Creat Ratio 11.3 RATIO (10-20); Calcium,Total 10.3 mg/dL (8.5-10.1); Chloride 108 mmol/L (98-107); Creatinine, Serum 1.24 mg/dL (0.70-1.30); EST Glomerular Filtration Rate 61 mL/min (>60); Est Glom Filt Rate - Afr Amer 74 mL/min (>60); Globulin 3.7 g/dL (2.2-4.2); Glucose 117 mg/dL (74-106); Potassium 4.1 mmol/L (3.5-5.1); Protein, Total 7.4 g/dL (6.4-8.2); Sodium Level 139 mmol/L (136-145)
== END | disposition home or self-care (01) ==
LOC: POLAB3 11:43
PROVIDERS: PCP Family Medicine Geriatric Medicine; Visit Provider Family Medicine Geriatric Medicine
DX: I10 Essential (primary) hypertension (principal); E55.9 Vitamin D deficiency, unspecified
CPT/HCPCS: 36415; 80053; 82306; 84443; 85025